=== PATIENT | male | born 1970 | race Caucasian/White ===

== ENCOUNTER 2018-04-01 20:52 | Observation (INO) | payer BC, SELFPAY ==
[2018-04-01] VITALS (7 sets, daily range): BP systolic 129–149; BP diastolic 73–94; PULSE 79–96; RESP 13–17; TEMP 36.1; O2SAT 95–97; BMI 29.2
--- NOTE | 2018-04-01 21:00 | ED.RN ---
NO OLD EKGS IN MUSE.
--- NOTE | 2018-04-01 21:02 | EKG12_ITS ---
Test Reason : CP Blood Pressure : / mmHG Vent. Rate : 090 BPM Atrial Rate : 090 BPM P-R Int : 196 ms QRS Dur : 086 ms QT Int : 338 ms P-R-T Axes : 047 002 038 degrees QTc Int : 413 ms Normal sinus rhythm Normal ECG Confirmed by SHANNAN DEL CASTILLO, ZACKARY ([id number]), fan mail editor DIANE STAUFFER ([id number]) on 04/06/2018 1:52:04 PM Referred By: JASON Confirmed By:ZACKARY CAMPBELL MD
--- NOTE | 2018-04-01 21:02 | RAD_ITS ---
STUDY: X-RAY CHEST REASON FOR EXAM: Male, 47 years old. Chest pain TECHNIQUE: Single AP portable view of the chest. COMPARISON: None. FINDINGS: The lungs are clear and expanded. There is no demonstrated pleural abnormality. Normal size heart. Normal mediastinum and elva. Normal visualized pulmonary arteries. Normal visualized aortic arch and descending thoracic aorta. Normal visualized thoracic spine. Normal visualized ribs, clavicles, and shoulders. There is no demonstrated abnormality of the visualized soft tissue structures of the upper abdomen. RAD/Chest 1 View (Portable) IMPRESSION: Normal x-ray examination of the chest. Electronically Signed: Anthony Hernández MD at 21:36 EDT , Service support ,
[2018-04-01 21:17] LABS: Absolute Lymphocyte Count 3.62 X10^3/ul (0.83-4.51); Absolute Neutrophil Count 6.6 X10^3/uL (2.0-7.7); Basophil# 0.02 X10^3/uL; Basophil% 0.2 % (0-1); Eosinophils% 1.8 % (0-5); Hematocrit 47.1 % (40-54); Hemoglobin 15.8 g/dl (13.0-16.5); Lymphocyte # 3.62 X10^3/ul (4.0); Lymphocyte % 32.8 % (19-41); Mean Corp Hgb Conc 33.5 g/gl (32-36); Mean Corpuscular Hgb 30.7 pg (27.0-32.0); Mean Corpuscular Volume 91.6 fL (80-94); Mean Platelet Vol. 9.4 fl (6.2-12.0); Monocyte# 0.55 X10^3/uL; Neutrophil # 6.62 X10^3/uL (2.7-7.7); Neutrophil % 60.1 % (47-70); Platelet Count 270 K/mm3 (150-450); RBC Distribution Width CV 13.1 % (11.6-14.6); RBC Distribution Width SD 43.9 fl (35.1-43.9); Red Blood Count 5.14 M/mm3 (4.6-6.2)
[2018-04-01 21:21] LABS: POSITIVE COUNT NO; POSITIVE DIFFERENTIAL NO; POSITIVE MORPHOLOGY NO
[2018-04-01 21:32] LABS: Anion Gap 6 (5-15); BUN 18 mg/dL (7-18); BUN/Creat Ratio 15.8 RATIO (10-20); Calcium,Total 8.5 mg/dL (8.5-10.1); Chloride 107 mmol/L (98-107); Creatinine, Serum 1.14 mg/dL (0.70-1.30); EST Glomerular Filtration Rate 74 mL/min (>60); Est Glom Filt Rate - Afr Amer 89 mL/min (>60); Estimated Creatinine Clearance 87.15 ml/min; Glucose 94 mg/dL (74-106); Sodium Level 142 mmol/L (136-145)
--- NOTE | 2018-04-01 21:39 | CT_ITS ---
STUDY: CTA CHEST REASON FOR EXAM: Male, 47 years old. LEFT CHEST PAIN RADIATES TO BACK, CONCERN FOR DISSECTION, LEFT POSTERIOR CHEST PAIN WITH RADIATION DOWN LEFT ARM RADIATION DOSAGE (If Supplied By Facility): CTDIvol = ( 16.32 ) mGy, DLP = ( 737.58 ) mGycm TECHNIQUE: The examination was performed with the intravenous administration of 100ML ml of Isovue 370 contrast material. Post-processing of the angiographic images was performed, with multiplanar reformation and 3D reconstruction. Individualized dose optimization techniques were used for this CT. COMPARISON: None. FINDINGS: Normal enhancement of the main pulmonary artery and right and left pulmonary arteries. Normal enhancement of the bilateral peripheral pulmonary arteries. There is no demonstrated pulmonary embolism. Normal thoracic aorta and visualized great vessels. There is no demonstrated aortic dissection. Normal heart and pericardium. Normal mediastinum. Normal hilar regions. Normal visualized trachea and bronchi. The lungs are well expanded. Normal pulmonary parenchyma. Normal pleura. Normal chest wall structures. There are degenerative changes of thoracic spine. There is diffuse fatty infiltration of the liver. CT/CTA Chest W/WO Contrast IMPRESSION: Normal CTA chest examination, without a demonstrated pulmonary embolism or arterial dissection. Fatty liver Electronically Signed: Anthony Hernández MD at 22:31 EDT , Service support ,
[2018-04-01] MEDS: Aspirin 81 MG TAB.CHEW 324 MG PO (22:18)
--- NOTE | 2018-04-01 22:47 | ED.VIS.GEN ---
History of Present Illness Chief Complaint: Chest Pain Informant: Patient Onset: Today Context: Gradual Onset Timing: Continuous Current Severity: Mild Maximum Severity: Severe Worsened by: Exertion Relieved by: rest Associated Symptoms: SUTHERLAND, different left-sided chest pain radiating into the left back, sweats Narrative: 2 days ago patient had dyspnea with exertion it was very unusual for him. That occurred again today. 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 Today, he also noticed nonpleuritic substernal chest heaviness and had some sweating at one point when he was doing light exertion, he thought that was unusual for him. No palpitations, lightheadedness, nausea, vomiting. He has had issues with discomfort in both upper extremities off and on for the past year that has had no diagnosable explanation yet, his left shoulder was bothering him more today and he does not know if it was related to that or the chest discomfort. He states there is a separate discomfort in his left chest that shoots straight through to his back and he feels it more prominently in his back, states it feels like something is sticking him there but it does not feel sharp, tearing, and he has no sensation of doom. He feels better now that he is resting but the chest discomfort is still there. It is been there in some form throughout much of the day today. He has never had these symptoms before. - Past Medical History (1) ANIBAL (obstructive sleep apnea) Status: Chronic Past Medical History - Allergies and Home Meds Allergies/Adverse Reactions: Allergies Sulfa (Sulfonamide Antibiotics) Allergy (Verified 04/01/18 21:35) Swelling Primary Care Physician: Ramona Freeman DO [Primary Care Provider] - Past Medical History: None Lives: Spouse/ Significant Other Smoking Status: Never smoker Drugs: None - Family History Paternal Family History: Denies: Heart Disease Maternal Family History: Denies: Heart Disease Review of Systems All systems negative except as indicated General: Reports: Malaise - today Cardiovascular: Reports: Chest pain. Denies: Palpitations, Heart racing Respiratory: Reports: Dyspnea on exertion. Denies: Cough, Orthopnea, Paroxysmal nocturnal dyspnea Gastrointestinal: Denies: Abdominal pain, Nausea, Vomiting, Diarrhea, Melena, Hematochezia Musculoskeletal: Reports: Arthralgias - BUE x 1 yr, Back pain, Extremity Pain. Denies: Swelling Skin: Reports: Rash - patchy red, off and on, back and LEs x 1 yr Physical Exam Vital Signs/Narrative: Vital Signs Temp Pulse Resp BP Pulse Ox 04/01/18 22:27 88 137/83 H 04/01/18 22:25 84 15 134/93 H 95 04/01/18 22:20 79 135/80 H 04/01/18 21:34 96 04/01/18 21:24 89 16 129/87 H 95 04/01/18 20:53 97 F L 96 17 149/94 H 97 General: Well nourished, Well developed Head: Normocephalic, Atraumatic Eyes: Perrl, EOMI ENT: Moist mucous membranes, No rhinorrhea Neck: Supple, Nontender Cardiovascular: Regular rate, Regular rhythm, No murmurs, Normal S1, Normal S2, - - equal bilat 2+/4 radial pulses Respiratory: No distress, CTA bilaterally, Chest nontender Abdomen: Soft, Nontender, Nondistended, Normal bowel sounds Back: Nontender, Normal Inspection Extremities: Nontender, No edema Skin: Normal color, Rash - lacy circular patches of erythema w/o silvery surface, to back and LLE Neurological: Alert, Oriented x3, Cranial nerves II-XII grossly intact, Normal Strength, Normal Sensation Psychological: Normal affect Diagnostic/Tx/Re-eval Impressions Chest X-Ray 04/01/18 21:02 IMPRESSION: Normal x-ray examination of the chest. Electronically Signed: Anthony Hernández MD at 21:36 EDT , Service support , Chest CTA 04/01/18 21:39 IMPRESSION: Normal CTA chest examination, without a demonstrated pulmonary embolism or arterial dissection. Fatty liver Electronically Signed: Anthony Hernández MD at 22:31 EDT , Service support , 04/01/18 21:02 Chest 1 View (Portable) [RAD] Stat 04/01/18 21:39 CTA Chest W/WO Contrast [CT] Stat Laboratory Results 08/01/18 08/01/18 Range/Units 21:10 21:10 WBC 11.0 (4.4-11.0) K/mm3 RBC 5.14 (4.6-6.2) M/mm3 Hgb 15.8 (13.0-16.5) g/dl Hct 47.1 (40-54) % MCV 91.6 (80-94) fL MCH 30.7 (27.0-32.0) pg MCHC 33.5 (32-36) g/gl RDW 13.1 (11.6-14.6) % RDW Differential 43.9 (35.1-43.9) fl Plt Count 270 (150-450) K/mm3 MPV 9.4 (6.2-12.0) fl Immature Gran % (Auto) 0.100 (0.0-0.9) % Neut % (Auto) 60.1 (47-70) % Lymph % (Auto) 32.8 (19-41) % [place] % (Auto) 5.0 (0-10) % Eos % (Auto) 1.8 (0-5) % Baso % (Auto) 0.2 (0-1) % Absolute Neuts (auto) 6.6 (2.0-7.7) X10^3/uL Absolute Lymphs (auto) 3.62 (0.83-4.51) X10^3/ul Total Counted Not Reportable Sodium 142 (136-145) mmol/L Potassium 4.0 (3.5-5.1) mmol/L Chloride 107 (98-107) mmol/L Carbon Dioxide 29.0 (21.0-32.0) mmol/L Anion Gap 6 (5-15) BUN 18 (7-18) mg/dL Creatinine 1.14 (0.70-1.30) mg/dL Estim Creat Clear Calc 87.15 ml/min Est GFR (MDRD) Af Amer 89 (>60) mL/min Est GFR (MDRD) Non-Af 74 (>60) mL/min BUN/Creatinine Ratio 15.8 (10-20) RATIO Glucose 94 (74-106) mg/dL Calcium 8.5 (8.5-10.1) mg/dL Troponin I < 0.015 (<0.045) ng/mL - Rhythm Strip Rhythm Strip: Sinus Rhythm Rate: 85 Ectopy: None - EKG Initial EKG Interpretation: Sinus Rhythm, No Acute Injury Pattern, - - nml axis and intervals. nml EKG. - Medical Decision Making Workup is negative including CT angiography EKG and troponin are negative. However, his symptoms are very concerning. Furthermore, he improved significantly, with almost complete resolution of all symptoms, after nitroglycerin sublingual. He still has some residual mild chest discomfort, and I encouraged him to try GI cocktail of only Mylanta and lidocaine to see if he would improve further. He was agreeable, and 5-10 minutes later, he vomited up a significant degree, including blood-tinged sputum, and was very uncomfortable in his throat. I think this is from the lidocaine. He was treated successfully with Zofran. Do not think he is having an anaphylactic or allergic reaction and I mentioned this to the patient and he states it does not feel like he is having a reaction. He is feeling better. Hopefully the blood-tinged was from a minor Mone-Harper tear, he was dry heaving quite a bit. Unknown if this could be related to the original symptoms he was having or not, that was my thought when I offered and a GI cocktail. However, given his concerning history, I still recommend that he stay for observation and get a stress test in the morning. He was amenable to that. [facility], we are calling the [place] to verify that that is approved. Hospitalist evaluating. Aspirin given. ED Disposition - Plan for ED Patient: Disposition: Acute Care Hospital [facility] Chief Complaint: Chest Pain Diagnosis: Chest pain, unspecified Referrals: Ramona Freeman DO [Primary Care Provider] -
--- NOTE | 2018-04-01 22:52 | ED.DCSUM_ITS ---
History of Present Illness Chief Complaint: Chest Pain Informant: Patient Onset: Today Context: Gradual Onset Timing: Continuous Current Severity: Mild Maximum Severity: Severe Worsened by: Exertion Relieved by: rest Associated Symptoms: S[place], different left-sided chest pain radiating into the left back, sweats Narrative: 2 days ago patient had dyspnea with exertion it was very unusual for him. That occurred again today. 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 Today, he also noticed nonpleuritic substernal chest heaviness and had some sweating at one point when he was doing light exertion, he thought that was unusual for him. No palpitations, lightheadedness , nausea, vomiting. He has had issues with discomfort in both upper extremities off and on for the past year that has had no diagnosable explanation yet, his left shoulder was bothering him more today and he does not know if it was related to that or the chest discomfort. He states there is a separate discomfort in his left chest that shoots straight through to his back and he feels it more prominently in his back, states it feels like something is sticking him there but it does not feel sharp, tearing, and he has no sensation of doom. He feels better now that he is resting but the chest discomfort is still there. It is been there in some form throughout much of the day today. He has never had these symptoms before. - Past Medical History (1) ANIBAL (obstructive sleep apnea) Status: Chronic Past Medical History - Allergies and Home Meds Allergies/Adverse Reactions: Allergies Sulfa (Sulfonamide Antibiotics) Allergy (Verified 04/01/18 21:35) Swelling Primary Care Physician: Ramona Freeman DO [Primary Care Provider] - Past Medical History: None Lives: Spouse/ Significant Other Smoking Status: Never smoker Drugs: None - Family History Paternal Family History: Denies: Heart Disease Maternal Family History: Denies: Heart Disease Review of Systems All systems negative except as indicated General: Reports: Malaise - today Cardiovascular: Reports: Chest pain. Denies: Palpitations, Heart racing Respiratory: Reports: Dyspnea on exertion. Denies: Cough, Orthopnea, Paroxysmal nocturnal dyspnea Gastrointestinal: Denies: Abdominal pain, Nausea, Vomiting, Diarrhea, Melena, Hematochezia Musculoskeletal: Reports: Arthralgias - BUE x 1 yr, Back pain, Extremity Pain. Denies: Swelling Skin: Reports: Rash - patchy red, off and on, back and LEs x 1 yr Physical Exam Vital Signs/Narrative: Vital Signs Temp Pulse Resp BP Pulse Ox 04/01/18 22:27 88 137/83 H 04/01/18 22:25 84 15 134/93 H 95 04/01/18 22:20 79 135/80 H 04/01/18 21:34 96 04/01/18 21:24 89 16 129/87 H 95 04/01/18 20:53 97 F L 96 17 149/94 H 97 General: Well nourished, Well developed Head: Normocephalic, Atraumatic Eyes: Perrl, EOMI ENT: Moist mucous membranes, No rhinorrhea Neck: Supple, Nontender Cardiovascular: Regular rate, Regular rhythm, No murmurs, Normal S1, Normal S2, - - equal bilat 2+/4 radial pulses Respiratory: No distress, CTA bilaterally, Chest nontender Abdomen: Soft, Nontender, Nondistended, Normal bowel sounds Back: Nontender, Normal Inspection Extremities: Nontender, No edema Skin: Normal color, Rash - lacy circular patches of erythema w/o silvery surface , to back and LLE Neurological: Alert, Oriented x3, Cranial nerves II-XII grossly intact, Normal Strength, Normal Sensation Psychological: Normal affect Diagnostic/Tx/Re-eval Impressions Chest X-Ray 04/01/18 21:02 IMPRESSION: Normal x-ray examination of the chest. Electronically Signed: Anthony Hernández MD at 21:36 EDT , Service support , Chest CTA 04/01/18 21:39 IMPRESSION: Normal CTA chest examination, without a demonstrated pulmonary embolism or arterial dissection. Fatty liver Electronically Signed: Anthony Hernández MD at 22:31 EDT , Service support , 04/01/18 21:02 Chest 1 View (Portable) [RAD] Stat 04/01/18 21:39 CTA Chest W/WO Contrast [CT] Stat Laboratory Results 08/01/18 08/01/18 Range/Units 21:10 21:10 WBC 11.0 (4.4-11.0) K/mm3 RBC 5.14 (4.6-6.2) M/mm3 Hgb 15.8 (13.0-16.5) g/dl Hct 47.1 (40-54) % MCV 91.6 (80-94) fL MCH 30.7 (27.0-32.0) pg MCHC 33.5 (32-36) g/gl RDW 13.1 (11.6-14.6) % RDW Differential 43.9 (35.1-43.9) fl Plt Count 270 (150-450) K/mm3 MPV 9.4 (6.2-12.0) fl Immature Gran % (Auto) 0.100 (0.0-0.9) % Neut % (Auto) 60.1 (47-70) % Lymph % (Auto) 32.8 (19-41) % [place] % (Auto) 5.0 (0-10) % Eos % (Auto) 1.8 (0-5) % Baso % (Auto) 0.2 (0-1) % Absolute Neuts (auto) 6.6 (2.0-7.7) X10^3/uL Absolute Lymphs (auto) 3.62 (0.83-4.51) X10^3/ul Total Counted Not Reportable Sodium 142 (136-145) mmol/L Potassium 4.0 (3.5-5.1) mmol/L Chloride 107 (98-107) mmol/L Carbon Dioxide 29.0 (21.0-32.0) mmol/L Anion Gap 6 (5-15) BUN 18 (7-18) mg/dL Creatinine 1.14 (0.70-1.30) mg/dL Estim Creat Clear Calc 87.15 ml/min Est GFR (MDRD) Af Amer 89 (>60) mL/min Est GFR (MDRD) Non-Af 74 (>60) mL/min BUN/Creatinine Ratio 15.8 (10-20) RATIO Glucose 94 (74-106) mg/dL Calcium 8.5 (8.5-10.1) mg/dL Troponin I < 0.015 (<0.045) ng/mL - Rhythm Strip Rhythm Strip: Sinus Rhythm Rate: 85 Ectopy: None - EKG Initial EKG Interpretation: Sinus Rhythm, No Acute Injury Pattern, - - nml axis and intervals. nml EKG. - Medical Decision Making Workup is negative including CT angiography EKG and troponin are negative. However, his symptoms are very concerning. Furthermore, he improved significantly, with almost complete resolution of all symptoms, after nitroglycerin sublingual. He still has some residual mild chest discomfort, and I encouraged him to try GI cocktail of only Mylanta and lidocaine to see if he would improve further. He was agreeable, and 5-10 minutes later, he vomited up a significant degree, including blood-tinged sputum, and was very uncomfortable in his throat. I think this is from the lidocaine. He was treated successfully with Zofran. Do not think he is having an anaphylactic or allergic reaction and I mentioned this to the patient and he states it does not feel like he is having a reaction. He is feeling better. Hopefully the blood- tinged was from a minor Mone-Harper tear, he was dry heaving quite a bit. Unknown if this could be related to the original symptoms he was having or not, that was my thought when I offered and a GI cocktail. However, given his concerning history, I still recommend that he stay for observation and get a stress test in the morning. He was amenable to that. [facility], we are calling the [place] to verify that that is approved. Hospitalist evaluating. Aspirin given. ED Disposition - Plan for ED Patient: Disposition: Acute Care Hospital [facility] Chief Complaint: Chest Pain Diagnosis: Chest pain, unspecified Referrals: Ramona Freeman DO [Primary Care Provider] -
[2018-04-01] MEDS: Ondansetron 4 MG/2 ML Vial IV (23:18)
--- NOTE | 2018-04-01 23:19 | ED.RN ---
PT CALLED OUT, PT THROWING UP, BLOOD TINGED. STATES HE HAD TROUBLE SWALLOWING AND STARTED THROWING UP.
--- NOTE | 2018-04-01 23:32 | PCM.HP.STD ---
Problem List (1) Chest pain Status: Acute Qualifiers: Chest pain type: unspecified Qualified Code(s): R07.9 - Chest pain, unspecified (2) Overweight (BMI 25.0-29.9) Status: Chronic (3) ANIBAL (obstructive sleep apnea) Status: Chronic History of Present Illness Date of Admission: 04/01/18 Chief Complaint: Chest pain The patient is a 47 y/o M w/ PMHx: ANIBAL, Overweight, Unclear Polyarticular Pain/Muscle pain ongoing work-up currently who presents to the [facility] ED on 04/01/18 with history of normal stress testing 20-25 years ago as required per [employer] which was unremarkable at that time; however, over 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 He has been having BL shoulder discomfort secondary to war trauma but this discomfort was different than baseline. He does note increased fatigue over the last several days leading up to the dyspnea. He also notes history over the last year of intermittent various joint severe and debilitating pain as well as muscle pains which come and go. He has been evaluated per Rheumatology and notes having tried two medications without success aside from prednisone. He notes recent multiple In the ED work-up included afebrile, heart rate 79, BP 135/80, respiratory rate 15, 95% room air, unremarkable CBC, unremarkable BMP, troponin less than 0.015, EKG normal sinus rhythm with no acute evidence of ischemia, chest x-ray unremarkable, CTPA with no acute findings. In the ED patient administered normal saline, Zofran, nitroglycerin sublingual, GI cocktail, aspirin. He notes following NG supplementation his chest pain resolved, 0/10. Past Medical History Past Medical History (Chronic Problems): Chronic Problems Overweight (BMI 25.0-29.9) (Chronic) ANIBAL (obstructive sleep apnea) (Chronic) Allergies Sulfa (Sulfonamide Antibiotics) Allergy (Verified 04/01/18 21:35) Swelling Home Medications: Ambulatory Orders Medication Instructions Recorded NK [NK] 04/01/18 Lives: Spouse/ Significant Other Smoking Status: Never smoker Drugs: None - *Family History Maternal History Items: - - Maternal and Paternal grandfather with heart disease with major ID in his 50s. Paternal History Items: - - Maternal and Paternal grandfather with heart disease with major ID in his 50s Review of Systems Constitutional: Reports: Fatigue. Denies: Chills, Fever, Weight Change HEENT: Denies: Head Aches, Sinus Congestion, Sinus Drainage Cardiovascular: Reports: Chest Pain, Chest Pressure, Chest Tightness. Denies: Palpitations Respiratory: Reports: Shortness of Breath, Shortness of breath upon exertion. Denies: Cough, Shortness of breath at rest, Sputum production Gastrointestinal: Denies: Abdominal Pain, Nausea, Vomiting Genitourinary: Denies: Dysuria Musculoskeletal: Reports: Joint stiffness, Joint Tenderness, Muscle pain. Denies: Joint Pain Skin: Denies: Rash, Wounds Neurological: Denies: Numbness, Tingling, Focal weakness Psychiatric: Denies: Anxiety, Depression, Homicidal Ideations, Suicidal Ideations Hematologic/ Lymphatic: Denies: Easy Bruising, Easy Bleeding VTE Information - Inpt Only VTE Present on Admission: No VTE Mechan Device Prophylaxis: SCD's VTE Pharm Prophylaxis ordered?: Yes Patient Problems: Active and Suspected Problems Chest pain (Acute) Subjective: Seated upright in the bed, fatigued, frustrated with his ongoing health issues. Objective: Physical Examination: General: awake, alert, oriented x 3 and cooperative, seated upright in the ED bed in no apparent distress. Skin: normal color, turgor, no icterus, cyanosis. HEENT: AT/NC, EOMI, PERRLA, MMM, no carotid bruits or JVD noted. Lungs: CTA bilaterally, moderate effort, mild decrease BL bases, no rales, ronchi or wheezing. Heart: regular rate and rhythm; no gallop, rub audible. Abdomen: soft, overweight, NTTP, ND, hyperactive BS, no HSM. Extremities: no cyanosis, clubbing, or edema. Neurological: patient awake, alert, oriented x 3; cognitive function intact; pupils equally reactive to light and accomodation; cranial nerves II-XII grossly normal, moving all 4 extremities, no focal deficits, strength preserved. Psychiatric: affect appears normal, no acute evidence of depressive or anxiety feelings. - Physical Exam Vital Signs Temp Pulse Resp BP Pulse Ox 97 F L 82 13 138/73 H 97 04/01/18 20:53 04/01/18 23:21 04/01/18 23:21 04/01/18 23:21 04/01/18 23:21 Oxygen Flow Rate (L/min) 2 Oxygen Delivery Method Nasal Cannula Weight: 210 lb Body Mass Index (BMI) 29.2 Laboratory Tests Past 24 Hrs 04/01/18 04/01/18 21:10 21:10 WBC 11.0 RBC 5.14 Hgb 15.8 Hct 47.1 MCV 91.6 MCH 30.7 MCHC 33.5 RDW 13.1 RDW Differential 43.9 Plt Count 270 MPV 9.4 Immature Gran % (Auto) 0.100 Neut % (Auto) 60.1 Lymph % (Auto) 32.8 [place] % (Auto) 5.0 Eos % (Auto) 1.8 Baso % (Auto) 0.2 Absolute Neuts (auto) 6.6 Absolute Lymphs (auto) 3.62 Total Counted Not Reportable Sodium 142 Potassium 4.0 Chloride 107 Carbon Dioxide 29.0 Anion Gap 6 BUN 18 Creatinine 1.14 Estim Creat Clear Calc 87.15 Est GFR (MDRD) Af Amer 89 Est GFR (MDRD) Non-Af 74 BUN/Creatinine Ratio 15.8 Glucose 94 Calcium 8.5 Troponin I < 0.015 Assessment/Plan All Active Problems Chest pain (Acute) The patient is a 47 y/o M w/ PMHx: ANIBAL, Overweight, Unclear Polyarticular Pain/Muscle pain ongoing work-up currently who presents to the [facility] ED on 04/01/18 with history of normal stress testing 20-25 years ago as required per [employer] which was unremarkable at that time; however, over 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 (1) Chest Pain: ED evaluation w/ troponin less than 0.015, EKG normal sinus rhythm with no acute evidence of ischemia, chest x-ray unremarkable, CTPA with no acute findings. Will admit to PCU, place on a monitored bed to assure no acute myocardial infarction with serial cardiac enzymes and EKGs. Patient is able to perform exercise thus will proceed with AM stress testing if enzymes remain unremarkable. ASA, NG, morphine. (2) Polyarticular and Muscle Pain, Intermittent: Unclear etiology, ongoing work-up, recent notable lab work (suspect rheumatological) with follow-up 1 week at [place] and encouraged return to [facility]. (3) Overweight: Weight loss and lifestyle changes encouraged, nutrition consulted for education and teaching. (4) ANIBAL: CPAP q HS (5) GERD: Famotidine. (6) DVT prophylaxis: SCDs, lovenox. Code Visit OBSV E&M: 29841 Initial observation care L3
--- NOTE | 2018-04-01 23:44 | HP.PCM_ITS ---
Problem List (1) Chest pain Status: Acute Qualifiers: Chest pain type: unspecified Qualified Code(s): R07.9 - Chest pain, unspecified (2) Overweight (BMI 25.0-29.9) Status: Chronic (3) ANIBAL (obstructive sleep apnea) Status: Chronic History of Present Illness Date of Admission: 04/01/18 Chief Complaint: Chest pain The patient is a 47 y/o M w/ PMHx: ANIBAL, Overweight, Unclear Polyarticular Pain/ Muscle pain ongoing work-up currently who presents to the [facility] ED on 04/01/18 with history of normal stress testing 20-25 years ago as required per [employer] which was unremarkable at that time; however, over 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 He has been having BL shoulder discomfort secondary to war trauma but this discomfort was different than baseline. He does note increased fatigue over the last several days leading up to the dyspnea. He also notes history over the last year of intermittent various joint severe and debilitating pain as well as muscle pains which come and go. He has been evaluated per Rheumatology and notes having tried two medications without success aside from prednisone. He notes recent multiple In the ED work-up included afebrile, heart rate 79, BP 135/80, respiratory rate 15, 95% room air, unremarkable CBC, unremarkable BMP, troponin less than 0.015, EKG normal sinus rhythm with no acute evidence of ischemia, chest x-ray unremarkable, CTPA with no acute findings. In the ED patient administered normal saline, Zofran, nitroglycerin sublingual, GI cocktail, aspirin. He notes following NG supplementation his chest pain resolved, 0/10. Past Medical History Past Medical History (Chronic Problems): Chronic Problems Overweight (BMI 25.0-29.9) (Chronic) ANIBAL (obstructive sleep apnea) (Chronic) Allergies Sulfa (Sulfonamide Antibiotics) Allergy (Verified 04/01/18 21:35) Swelling Home Medications: Ambulatory Orders Medication Instructions Recorded NK [NK] 04/01/18 Lives: Spouse/ Significant Other Smoking Status: Never smoker Drugs: None - *Family History Maternal History Items: - - Maternal and Paternal grandfather with heart disease with major AR in his 50s. Paternal History Items: - - Maternal and Paternal grandfather with heart disease with major AR in his 50s Review of Systems Constitutional: Reports: Fatigue. Denies: Chills, Fever, Weight Change HEENT: Denies: Head Aches, Sinus Congestion, Sinus Drainage Cardiovascular: Reports: Chest Pain, Chest Pressure, Chest Tightness. Denies: Palpitations Respiratory: Reports: Shortness of Breath, Shortness of breath upon exertion. Denies: Cough, Shortness of breath at rest, Sputum production Gastrointestinal: Denies: Abdominal Pain, Nausea, Vomiting Genitourinary: Denies: Dysuria Musculoskeletal: Reports: Joint stiffness, Joint Tenderness, Muscle pain. Denies: Joint Pain Skin: Denies: Rash, Wounds Neurological: Denies: Numbness, Tingling, Focal weakness Psychiatric: Denies: Anxiety, Depression, Homicidal Ideations, Suicidal Ideations Hematologic/ Lymphatic: Denies: Easy Bruising, Easy Bleeding VTE Information - Inpt Only VTE Present on Admission: No VTE Mechan Device Prophylaxis: SCD's VTE Pharm Prophylaxis ordered?: Yes Patient Problems: Active and Suspected Problems Chest pain (Acute) Subjective: Seated upright in the bed, fatigued, frustrated with his ongoing health issues. Objective: Physical Examination: General: awake, alert, oriented x 3 and cooperative, seated upright in the ED bed in no apparent distress. Skin: normal color, turgor, no icterus, cyanosis. HEENT: AT/NC, EOMI, PERRLA, MMM, no carotid bruits or JVD noted. Lungs: CTA bilaterally, moderate effort, mild decrease BL bases, no rales, ronchi or wheezing. Heart: regular rate and rhythm; no gallop, rub audible. Abdomen: soft, overweight, NTTP, ND, hyperactive BS, no HSM. Extremities: no cyanosis, clubbing, or edema. Neurological: patient awake, alert, oriented x 3; cognitive function intact; pupils equally reactive to light and accomodation; cranial nerves II-XII grossly normal, moving all 4 extremities, no focal deficits, strength preserved. Psychiatric: affect appears normal, no acute evidence of depressive or anxiety feelings. - Physical Exam Vital Signs Temp Pulse Resp BP Pulse Ox 97 F L 82 13 138/73 H 97 04/01/18 20:53 04/01/18 23:21 04/01/18 23:21 04/01/18 23:21 04/01/18 23:21 Oxygen Flow Rate (L/min) 2 Oxygen Delivery Method Nasal Cannula Weight: 210 lb Body Mass Index (BMI) 29.2 Laboratory Tests Past 24 Hrs 04/01/18 04/01/18 21:10 21:10 WBC 11.0 RBC 5.14 Hgb 15.8 Hct 47.1 MCV 91.6 MCH 30.7 MCHC 33.5 RDW 13.1 RDW Differential 43.9 Plt Count 270 MPV 9.4 Immature Gran % (Auto) 0.100 Neut % (Auto) 60.1 Lymph % (Auto) 32.8 [place] % (Auto) 5.0 Eos % (Auto) 1.8 Baso % (Auto) 0.2 Absolute Neuts (auto) 6.6 Absolute Lymphs (auto) 3.62 Total Counted Not Reportable Sodium 142 Potassium 4.0 Chloride 107 Carbon Dioxide 29.0 Anion Gap 6 BUN 18 Creatinine 1.14 Estim Creat Clear Calc 87.15 Est GFR (MDRD) Af Amer 89 Est GFR (MDRD) Non-Af 74 BUN/Creatinine Ratio 15.8 Glucose 94 Calcium 8.5 Troponin I < 0.015 Assessment/Plan All Active Problems Chest pain (Acute) The patient is a 47 y/o M w/ PMHx: ANIBAL, Overweight, Unclear Polyarticular Pain/ Muscle pain ongoing work-up currently who presents to the [facility] ED on 04/01/18 with history of normal stress testing 20-25 years ago as required per [employer] which was unremarkable at that time; however, over 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 (1) Chest Pain: ED evaluation w/ troponin less than 0.015, EKG normal sinus rhythm with no acute evidence of ischemia, chest x-ray unremarkable, CTPA with no acute findings. Will admit to PCU, place on a monitored bed to assure no acute myocardial infarction with serial cardiac enzymes and EKGs. Patient is able to perform exercise thus will proceed with AM stress testing if enzymes remain unremarkable. ASA, NG, morphine. (2) Polyarticular and Muscle Pain, Intermittent: Unclear etiology, ongoing work- up, recent notable lab work (suspect rheumatological) with follow-up 1 week at [place] and encouraged return to [facility] [employer]. (3) Overweight: Weight loss and lifestyle changes encouraged, nutrition consulted for education and teaching. (4) ANIBAL: CPAP q HS (5) GERD: Famotidine. (6) DVT prophylaxis: SCDs, lovenox. Code Visit OBSV E&M: 03256 Initial observation care L3
--- NOTE | 2018-04-01 23:49 | ED.RN ---
I CALLED FIORELLA KRAMER TWICE. I TRIED TWO DIFFERENT EXTENSIONS AND LEFT A MESSAGE STATING WE HAVE THIS PT THAT NEEDS ADMITTED. I HAVE NOT GOTTEN A PHONE CALL BACK.
--- NOTE | 2018-04-01 23:53 | ED.RN ---
I CALLED SACHIN KRAMER TO TRY TO CONTACT SOMEONE IN REGARDS TO THIS PT NEEDING ADMITTED AND NO ONE ANSWERED. IT DIDN'T GIVE ME AN OPTION TO LEAVE A MESSAGE.
--- NOTE | 2018-04-01 23:57 | NURSING ---
Called ED rehab director, Erica at this time to confirm Pt okay to come to PCU.
[2018-04-02] VITALS (11 sets, daily range): BP systolic 114–128; BP diastolic 72–82; PULSE 65–88; RESP 15–18; TEMP 36.4–36.6; O2SAT 95–96; BMI 31.4
--- NOTE | 2018-04-02 00:21 | EKG12_ITS ---
Test Reason : CHEST PAIN Blood Pressure : / mmHG Vent. Rate : 075 BPM Atrial Rate : 075 BPM P-R Int : 226 ms QRS Dur : 084 ms QT Int : 366 ms P-R-T Axes : 035 005 016 degrees QTc Int : 408 ms Sinus rhythm with 1st degree A-V block Otherwise normal ECG Confirmed by SHANNAN DEL CASTILLO, ZACKARY ([id number]), medical transcription editor DIANE STAUFFER ([id number]) on 04/06/2018 3:47:31 PM Referred By: KRISTA Confirmed By:ZACKARY CAMPBELL MD
[2018-04-02] MEDS: 0.9% Normal Saline 1,000 ML 100 ML IV (00:40)
[2018-04-02 01:22] LABS: Magnesium 2.1 mg/dL (1.6-2.6)
[2018-04-02 03:46] LABS: Hematocrit 43.9 % (40-54); Hemoglobin 15.1 g/dl (13.0-16.5); Mean Corp Hgb Conc 34.4 g/gl (32-36); Mean Corpuscular Hgb 31.1 pg (27.0-32.0); Mean Corpuscular Volume 90.3 fL (80-94); Mean Platelet Vol. 9.4 fl (6.2-12.0); Platelet Count 269 K/mm3 (150-450); RBC Distribution Width CV 13.4 % (11.6-14.6); RBC Distribution Width SD 44.4 fl (35.1-43.9); Red Blood Count 4.86 M/mm3 (4.6-6.2); White Blood Count 10.8 K/mm3 (4.4-11.0)
[2018-04-02 03:49] LABS: Prothrombin Time (Protime)PT. 13.6 SECONDS (11.7-14.9); Scan Indicated on CBC? Y/N NO
[2018-04-02 03:50] LABS: Partial Thromboplast Time 25.8 Seconds (24.1-36.2)
[2018-04-02 04:06] LABS: Anion Gap 9 (5-15); BUN 16 mg/dL (7-18); BUN/Creat Ratio 15.7 RATIO (10-20); Calcium,Total 8.1 mg/dL (8.5-10.1); Chloride 109 mmol/L (98-107); Cholesterol 145 mg/dL (200); Creatinine, Serum 1.02 mg/dL (0.70-1.30); EST Glomerular Filtration Rate 84 mL/min (>60); Est Glom Filt Rate - Afr Amer 101 mL/min (>60); Estimated Creatinine Clearance 97.41 ml/min; Glucose 87 mg/dL (74-106); High Density Lipoprotein 22 mg/dL; Potassium 3.9 mmol/L (3.5-5.1); Sodium Level 144 mmol/L (136-145); Triglycerides 283 mg/dL; Very Low Density Lipoprotein 57 mg/dL (5-40)
[2018-04-02] MEDS: DiphenhydrAMINE 50 MG/ML Syringe 25 MG IV (04:13)
--- NOTE | 2018-04-02 05:55 | STE_ITS ---
Reason For Study: CHEST PAIN Stress Results Protocol: Stress Echocardiogram Maximum Predicted HR: 175 bpm Target HR: 149 bpm% Maximum Pr edicted HR: 91 % DurationHeart Rate Stage (mm:ss) (bpm) BPCom ment BASELINE 64 110/84 DILUTED DEFINITY 2 ML USED DAVID PROTOCOL- STAGE 1 3:00 11 1 118/80SOB, PO 98% DAVID PROTOCOL- STAGE 2 3:00 13 1 128/80SOB, 97% DAVID PROTOCOL- STAGE 3 2:00 16 0 / SOB , FATIGUE, NUMBNESS IN FINGERS RECOVERY 92 112/72 NO FURTHER SOB, NUMBNESS Stress Duration: 8:00 mm:ss Maximum Stress HR: 160 bpm Baseline Echocardiogram Findings The estimated ejection fraction is 65 %. Trivial aortic valve insufficiency. Mild aortic stenosis. Bicuspid aortic valve. Stress Echo Wall motion Data Resting WMIntermediate WMStress WM Resting Wall Motion Wall Motion Stress No regional wall motion No regional wall motion abnormalities noted. abnormalities noted. EKG Data Normal intervals are noted. The patient exercised according to the regular David protocol for a total duration of 8:00. The maximum heart rate attained was 160 beats per minute. This was 91% of maximum predicted heart rate. The patient exercised into stage 3 of the David protocol. During stress, there were no ST or T wave changes noted to suggest ischemia. No clinical angina was noted. No arrhythmias noted. Interpretation Summary The study was technically difficult. Contrast injection was performed. The estimated ejection fraction is 65 %. Probable bicuspid aortic valve. Mild aortic stenosis. Trivial aortic valve insufficiency. Normal, adequate, treadmill echocardiogram. Negative for ischemia by EKG and echocardiographic criteria. No anginal symptoms noted. No arrhythmias noted. Appropriate blood pressure response to exercise. Average exercise capacity for age. Final LVEF is 75%. Decreased sensitivity due to poor echo windows requiring Definity agent. Patient appears to have a bicuspid aortic valve with fusion of the right and left cusp. His peak/mean gradient at peak exercise was 36 and 21 mmHg respectively. This is consistent with mild aortic stenosis. Recommend clinical correlation or alternative mode of testing to further evaluate. Doppler Measurements & Calculations Ao V2 max: 231.3 cm/sec AI max yg: 420.5 cm/sec Ao max P.2 mmHg AI max P.9 mmHg Ao V2 mean: 165.7 cm/sec AI dec slope: 310.9 cm/sec2 Ao mean P.6 mmHg AI P1/2t: 396.1 msec Ao V2 VTI: 38.7 cm Ordering Physician: Lauren Guthrie Referring Physician: Ramona Freeman D.O. Performed By: Diana Patterson RDCS
[2018-04-02] MEDS: Aspirin E.C. 81 MG Tablet PO (06:20)
[2018-04-02] MEDS: Famotidine 20 MG Tablet PO (08:58)
--- NOTE | 2018-04-02 09:14 | NURSING ---
0896 Patient arrived back from stress test resting in bed holding wifes hand. c/o chest pain midsternal slight to left through to back ache rates a 2. states same as when he came in . ekg done no change gave pepcid did not want anything else notified
--- NOTE | 2018-04-02 09:21 | EKG12_ITS ---
Test Reason : CP ADMIT Blood Pressure : / mmHG Vent. Rate : 073 BPM Atrial Rate : 073 BPM P-R Int : 222 ms QRS Dur : 088 ms QT Int : 378 ms P-R-T Axes : 050 007 030 degrees QTc Int : 416 ms Sinus rhythm with 1st degree A-V block Confirmed by SHANNAN DEL CASTILLO, ZACKARY ([id number]), online content editor DIANE STAUFFER ([id number]) on 04/06/2018 3:50:20 PM Referred By: DR VELASCO Confirmed By:ZACKARY CAMPBELL MD
--- NOTE | 2018-04-02 13:41 | DCINST_ITS ---
- Discharge Diagnoses Current Active Problems: Current Active and Chronic Problems Overweight (BMI 25.0-29.9) (Chronic) ANIBAL (obstructive sleep apnea) (Chronic) Chest pain (Acute) You will use the following diet at home:: No restrictions Discharge Activity: Return to Normal Activity Instructions: ED Chest Pain NonCardiac Allergies/Adverse Reactions: Allergies Sulfa (Sulfonamide Antibiotics) Allergy (Verified 04/01/18 21:35) Swelling Medications to take at Discharge NK [NK] 04/01/18 Primary Care Physician: Ramona Freeman DO [Primary Care Provider] - Please follow up with your Primary Care Physician in: in 1-2 weeks Test Results: Test results from this visit will be discussed in further detail at your follow- up appointment, if applicable. Proposed Discharge Date: 04/02/18
--- NOTE | 2018-04-02 13:41 | PCM.DC.SUM ---
Discharge Date and Diagnosis - Problem List Patient Problems: Active and Suspected Problems Chest pain (Acute) Date of Admission: 04/01/18 Date of Discharge: 04/02/18 - Primary Discharge Diagnosis Active and Suspected Problems Chest pain (Acute) - Secondary Discharge Diagnosis Chronic Problems Overweight (BMI 25.0-29.9) (Chronic) ANIBAL (obstructive sleep apnea) (Chronic) Hospital Course and Treatment Imaging Results: 04/02/18 05:55 Stress Test Echo W/Contrast [ECHO] Routine Summary of Care Provided: The patient is a 47 year old M who presented with chest pain. Patient was placed in a monitored bed did rule out [place] with serial cardiac enzymes patient underwent a stress echo which is negative for stress-induced ischemia. On the stress echo patient was found to have features consistent with mild aortic stenosis as well as suspected bicuspid aortic valves. Patient was informed of the result and instructed to follow-up with her primary care physician Dr. Ramona Freeman for repeat imaging studies in 6 months. Discharge Activity: Return to Normal Activity Home Medications: Medications to take at Discharge NK [NK] 04/01/18 Primary Care Physician: Ramona Freeman DO [Primary Care Provider] - Please follow up with your Primary Care Physician in: in 1-2 weeks Patient Instructions: ED Chest Pain NonCardiac Medical Necessity - Tobacco Use Smoking Status: Former smoker Tobacco Use: Cigarettes Meaningful Use Info Meaningful Use Diagnoses (Choose all that apply): None applicable Code Visit OBSV E&M: 31142 Observation care discharge
--- NOTE | 2018-04-02 13:52 | DS.PCM_ITS ---
Discharge Date and Diagnosis - Problem List Patient Problems: Active and Suspected Problems Chest pain (Acute) Date of Admission: 04/01/18 Date of Discharge: 04/02/18 - Primary Discharge Diagnosis Active and Suspected Problems Chest pain (Acute) - Secondary Discharge Diagnosis Chronic Problems Overweight (BMI 25.0-29.9) (Chronic) ANIBAL (obstructive sleep apnea) (Chronic) Hospital Course and Treatment Imaging Results: 04/02/18 05:55 Stress Test Echo W/Contrast [ECHO] Routine Summary of Care Provided: The patient is a 47 year old M who presented with chest pain. Patient was placed in a monitored bed did rule out [place] with serial cardiac enzymes patient underwent a stress echo which is negative for stress-induced ischemia. On the stress echo patient was found to have features consistent with mild aortic stenosis as well as suspected bicuspid aortic valves. Patient was informed of the result and instructed to follow-up with her primary care physician Dr. Ramona Freeman for repeat imaging studies in 6 months. Discharge Activity: Return to Normal Activity Home Medications: Medications to take at Discharge NK [NK] 04/01/18 Primary Care Physician: Ramona Freeman DO [Primary Care Provider] - Please follow up with your Primary Care Physician in: in 1-2 weeks Patient Instructions: ED Chest Pain NonCardiac Medical Necessity - Tobacco Use Smoking Status: Former smoker Tobacco Use: Cigarettes Meaningful Use Info Meaningful Use Diagnoses (Choose all that apply): None applicable Code Visit OBSV E&M: 16227 Observation care discharge
== END 2018-04-02 13:40 | disposition home or self-care (01) ==
LOC: ED 23:50 → PCU 23:56
PROVIDERS: Admitting Provider Family Medicine; Emergency Provider Emergency Medicine; Family Provider Internal Medicine; PCP Internal Medicine; Visit Provider Internal Medicine
DX: R07.89 Other chest pain (principal); R06.09 Other forms of dyspnea; G47.33 Obstructive sleep apnea (adult) (pediatric); K21.9 Gastro-esophageal reflux disease without esophagitis; E66.3 Overweight; Z68.31 Body mass index [BMI] 31.0-31.9, adult; Z71.3 Dietary counseling and surveillance; Z87.891 Personal history of nicotine dependence
CPT/HCPCS: 36415; 71045; 71275; 80048; 80061; 83735; 84484; 85025; 85027; 85610; 85730; 93005; 93017; 93350; 96361; 96374; 96375; 99218; 99285; J7030; J7040; Q9957; Q9967; A4216; C8928; G0378; J2405

== ENCOUNTER 2018-09-29 10:03 | Outpatient (RCR) | payer BC, SELFPAY ==
--- NOTE | 2018-10-05 13:56 | HP.PTEVAL_ITS ---
Patient's Visit Information JOHNNIE STAUFFER is a 47 year old M referred to Physical Therapy by [facility] with a diagnosis of B shoulder arthralgia. Date of Evaluation: 09/29/18 Physical Therapist: Odilon Wyman DPT - Visit Plan Frequency: 2x /Week Duration: 4-6 Weeks Plan: Start with graded postural strengthening, shoulder stability exercises as tolerated. Initiate on land, but if not progressing may attempt aquatic exercises. - Subjective Findings: Pt. is here today for his initial evaluation with diagnosis of arthralgia of B shoulders and hands. Pt. reports having increaed pain for years, but has been worse over the past 4-5 years. 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 Pt. was also in the [employer] [place] Pt. reports having chronic pain in B shoulders constantly, but if he does any hard labor type work the next day he is unable to do anything with his arms. Pt. has been checked for RA and RA like pathologies. He tested negative. Pt. is following up tomorrow with an infectious disease doctor about some lab work. Pt. reports minmal issues on a normal daily basis. Pt. is hopeful to increase his strength and decrease symptoms in order to have increased quality of life and increased ease with work/home activities. - Pain B shoulders Pain Intensity (Out of 10): 5 Pain Intensity Range: 2, 10 - Objective POSTURE: Pt. has rounded shoulders, protracted scapulea, FH posture, increased thoracic kyphosis. Pt. tends to have shoulder IR at rest. PALPATION: Pt.has increased soreness with palpation throughotu bilateral subacromial space (on anterior side). Pt. has tenderness in B UT and throughout scapular region. NEURO: Pt. has normal sensation and DTR of BUEs. No issues. MMT: PT. has 4+/5 generlized strength throughout B shoulders. 5/5 throughout wrist and elbows bilaterally. Normal scapular motion and rythm. - Special Tests C/S Radiculapathy - Left Upper limb tension test: Negative C/S Radiculapathy - Right Upper limb tension test: Negative C/S Radiculapathy - Left Spurlings: Negative C/S Radiculapathy - Right Spurlings: Negative C/S Radiculapathy - Right Cervical distraction: Negative C/S Radiculapathy - Left Relief test: Negative C/S Radiculapathy - Right Relief test: Negative C/S Radiculapathy - Valsalva: Negative R Shoulder External Rotation Lag Test - RC Tear: Negative R Shoulder Drop Sign - IS Test: Negative R Shoulder Empty Can - SS: Negative R Shoulder Belly Press - SupScap: Negative R Shoulder Neer - Impingement: Positive R Shoulder Hilton Mauricio - Impingement: Positive R Shoulder Biceps Load Test - Labrum: Negative R Shoulder Speeds Test - Labrum/Biceps: Negative L Shoulder External Rotation Lag Test - RC Tear: Negative L Shoulder Supine Impingement Test - RC Tear: Negative L Shoulder Drop Sign - IS Test: Negative L Shoulder Empty Can - SS: Negative L Shoulder Belly Press - SupScap: Negative L Shoulder Neer - Impingement: Positive L Shoulder Hilton Mauricio - Impingement: Positive L Shoulder Biceps Load Test - Labrum: Negative - Goals Goal 1:: Pt. to be I with HEP. Goal Time Frame: 4-6 Weeks Goal 2:: Pt. to complete labor like activities without latent adverse reaction of B shoulders. Goal Time Frame: 4-6 Weeks Goal 3:: Pt. to have improved posture throughout therapy session indicating increased postural awareness. Goal Time Frame: 4-6 Weeks Goal 4:: Pt. to sleep throughout the night without increase in symptoms. - Rehabilitation Potential Physical Therapy Diagnosis: Pt. has signs and symptoms consistent with B shoulder pain. Pt. had increasd pain with impingement testing this date, but than as testing progressed had increased pain with manual muscle testing. Pt. being fine then having intense pain the day after labor like activities does not match impingment syndrome. He would benefit from PT in the form of graded stability exercises in order to increase tolerance to all work related activities. Rehabilitation Potential: Fair - Anticipated Interventions Patient/Client Instruction: Educate patient on: Condition, Plan of Care, Risk Factors, Benefits of Fitness Program For the Purpose of:: To foster healthy habits, To improve decision making, To facilitate caregiver knowledge, To improve self management, To prevent re- injury, To improve ability to perform tasks related to life management, To improve tolerance to ADL's Therapeutic Exercise to Include: Strength training, Power training, Body mechanics, Postural training, Flexibilty training, In an aquatic setting, Passive ROM, Active ROM, Narciso Exercises, Scapular Strength/Stabilization For the Purpose of:: To decrease pain, To decrease swelling/inflammation, To increase ROM, To improve nutrient delivery to tissue, To increase oxygenation perfusion, To improve muscle performance and motor function, To improve ability to perform ADL's, To improve health of tissue, To decrease soft tissue restriction, To increase flexibility/ROM Manual Therapy Techniques to Include: Trigger point massage, Mobilization, Passive ROM, Functional dry needling, Soft tissue mobilization For the Purpose of:: To decrease pain, To decrease swelling/inflammation, To increase ROM, To improve nutrient delivery to tissue, To increase oxygenation perfusion, To improve muscle performance and motor function, To improve ability to perform ADL's, To improve health of tissue, To decrease soft tissue restriction, To increase flexibility/ROM Thank you for the opportunity to evaluate your patient. For Medicare and Medicare HMO plans, please review the plan of care and approve it. It will need to be FAXED BACK to us at [phone] for Medicare purposes. For Medicare only, by signing this I certify the plan of care. Please let me know if there are questions or concerns regarding this plan of care. Physician Signature: Date:
--- NOTE | 2019-04-07 15:27 | HP.PTDCNRP_ITS ---
HP - Discharge Summary (1) - Patient Information JOHNNIE STAUFFER was seen in my office for initial evaluation on 09/29/18. The following Plan of Care was established for this patient: Initial Frequency: 2x /Week Initial Duration: 4-6 Weeks - Anticipated Interventions Patient/Client Instruction: Educate patient on: Condition, Plan of Care, Risk Factors, Benefits of Fitness Program For the Purpose of:: To foster healthy habits, To improve decision making, To facilitate caregiver knowledge, To improve self management, To prevent re- injury, To improve ability to perform tasks related to life management, To improve tolerance to ADL's Therapeutic Exercise to Include: Strength training, Power training, Body mechanics, Postural training, Flexibilty training, In an aquatic setting, Passive ROM, Active ROM, Narciso Exercises, Scapular Strength/Stabilization For the Purpose of:: To decrease pain, To decrease swelling/inflammation, To increase ROM, To improve nutrient delivery to tissue, To increase oxygenation perfusion, To improve muscle performance and motor function, To improve ability to perform ADL's, To improve health of tissue, To decrease soft tissue restriction, To increase flexibility/ROM Manual Therapy Techniques to Include: Trigger point massage, Mobilization, Passive ROM, Functional dry needling, Soft tissue mobilization For the Purpose of:: To decrease pain, To decrease swelling/inflammation, To increase ROM, To improve nutrient delivery to tissue, To increase oxygenation perfusion, To improve muscle performance and motor function, To improve ability to perform ADL's, To improve health of tissue, To decrease soft tissue restriction, To increase flexibility/ROM This patient was last seen in our office 09/29/18. Pertinent comments regarding their Physical therapy will appear below: Pt. was seen for his initial evaluation, but has not been seen since. Pt. will be DC from PT at this point in time. At this point I will be discontinuing this patient from physical therapy. I would be happy to see this patient again in the future if found appropriate by the physician. Thank you! TIFFANIE AntunezT
== END 2018-09-29 19:00 | disposition home or self-care (01) ==
LOC: PT 10:03
PROVIDERS: Family Provider Internal Medicine; PCP Internal Medicine
DX: M25.519 Pain in unspecified shoulder (principal)
CPT/HCPCS: 97162

== ENCOUNTER 2021-07-26 17:32 | Emergency (ER) | payer OTHER, SELFPAY ==
[2021-07-26 17:33] VITALS: BP 155/102; PULSE 102; RESP 18; TEMP 36.6; O2SAT 98; BMI 31.8
--- NOTE | 2021-07-26 18:15 | EX.ED.GENINJ ---
HPI History of Present Illness Chief Complaint: Other, Pain/Inj Narrative Narrative: 50-year-old male presenting with neck pain. States this is a chronic issue. [facility] and has progressively become worse. He states that now he has pain in the base of his neck which radiates into the left arm and he has paresthesias. He denies any direct trauma. Patient states he has been told he has rheumatoid arthritis by the [facility]. He does not know if they did blood work to confirm this. Patient has not been referred to any spinal specialist. Patient states he has muscle relaxers at home which are not helping. He states he tried to make an appointment with [facility] but they told him to come to the emergency room. PFSH PFSH Home Medications prednisone 10 mg PO UD #22 tab 07/26/21 [Rx Last Taken Unknown] Allergy/AdvReac Type Severity Reaction Status Date / Time Sulfa (Sulfonamide Allergy Swelling Verified 07/26/21 17:35 Antibiotics) Social History Smoking Status: Former smoker ROS ROS ED Constitutional Constitutional ED: Denies chills or fever(s) Eyes Eyes: Denies blurry vision or change in vision ENT ENT ED: Denies rhinorrhea or sore throat Cardiovascular Cardiovascular: Denies chest pain Respiratory/Chest Respiratory/Chest: Denies cough or dyspnea Gastrointestinal Gastrointestinal: Denies abdominal pain, nausea or vomiting Genitourinary Genitourinary ED: Denies hematuria Musculoskeletal Musculoskeletal: Reports neck pain; Denies myalgias Integumentary Denies Abrasions or rash Neurologic Neurologic: Reports paresthesias LLE Psychiatric Psychiatric: Denies anxiety or depression EXAM Physical Exam Const Vital Signs: 07/26/21 17:33 Temperature 98 F Temperature Source Temporal Pulse Rate 102 H Respiratory Rate 18 Blood Pressure 155/102 H Blood Pressure Mean 119 Pulse Ox 98 Oxygen Delivery Method Room Air Positive well nourished General Appearance ED: NAD HEENT atraumatic Eyes PERRL and EOMs intact bilaterally Resp normal respiratory effort and clear to auscultation bilaterally Cardio regular rhythm Rate: regular rate Back/Spine Back/Spine Narrative: Generalized tenderness palpation of the cervical paraspinal musculature bilaterally without midline spinal deformity or step-off. Patient has full range of motion of the head and neck. Patient has bilateral symmetrical upper extremity strength. 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 Patient states muscle relaxer is not helping. I did funeral pre arrangement counselor him I will give him something for pain here give him a prednisone taper to help with the inflammation. Is this is a chronic issue I do not feel comfortable writing him for narcotic pain medication. The patient himself does not want this. I did offer cervical spine x-ray the patient declines. Patient was given a referral to Dr. Velazco as he states he does have supplemental insurance. He is also counseled to [facility] with the [facility]. Impression: 1. Cervical radiculopathy Discharge Plan Triage Chief Complaint: Other, Pain/Inj ED Provider: Elpidio Martínez Dx/Rx/DC Orders Instructions: ED Radiculopathy, Cervical Prescriptions: New prednisone 10 mg tablet 10 mg PO UD Qty: 22 RF: 0 [facility] Provider: [facility] Referrals: Victorino Velazco DO [STAFF PHYSICIAN] - [facility] soon as [facility] [Primary Care Provider] - Disposition Disposition: Home, Self Care
[2021-07-26] MEDS: oxyCODONE 5 MG Tablet PO (18:28)
[2021-07-26] MEDS: predniSONE 20 MG Tablet 60 MG PO (18:29)
== END 2021-07-26 18:42 | disposition home or self-care (01) ==
LOC: ED 18:16
PROVIDERS: Emergency Provider Student in an Organized Health Care Education/Training Program
DX: M54.12 Radiculopathy, cervical region (principal); Z87.891 Personal history of nicotine dependence
CPT/HCPCS: 99283